=== PATIENT | female | born 1990 | race Hispanic/Latino ===

== ENCOUNTER 2021-09-14 20:25 | Emergency (ER) | payer OTHER ==
[~2021-09-14] VITALS: Ht 167.6 cm; Wt 93.9 kg
[2021-09-14] MEDS ORDERED: IBUPROFEN 800 MG TAB PO ONE (21:00)
[2021-09-14 21:44] LABS: RAPID PLASMA REAGIN NONREACTIVE (NONREACTIVE)
[2021-09-14] MEDS ORDERED: IBUP-2071 PO (22:01)
[2021-09-14 22:03] VITALS: BP 115/71
[2021-09-15 14:36] LABS: HEPATITIS B SURFACE ANTIGEN Non-Reactive (Nonreactive); HEPATITIS C ANTIBODY Non-Reactive (Nonreactive)
[2021-09-15 14:37] LABS: HEPATITIS A IGM ANTIBODY Non-Reactive (Nonreactive); HEPATITIS B CORE IGM ANTIBODY Non-Reactive (Negative)
== END 2021-09-14 22:09 | disposition home or self-care (01) ==
LOC: EDH 20:25
DX: S00.83XA Contusion of other part of head, initial encounter (principal); Z77.21 Contact with and (suspected) exposure to potentially hazardous body fluids; Z79.1 Long term (current) use of non-steroidal anti-inflammatories (NSAID); X58.XXXA Exposure to other specified factors, initial encounter; Y93.89 Activity, other specified; Y92.89 Other specified places as the place of occurrence of the external cause; Y99.8 Other external cause status
CPT/HCPCS: 36415; 70486; 80074; 86592; 86701; 87390

== ENCOUNTER 2023-03-07 03:48 | Emergency (ER) | payer OTHER ==
[~2023-03-07] VITALS: Ht 167.6 cm; Wt 93.0 kg
[~2023-03-07 03:48] MED LIST: IBUP-2071 PO
[2023-03-07 03:49] VITALS: BP 144/88; PULSE 87; RESP 18
[2023-03-07 04:19] LABS: BASOPHILS # (AUTO) 0.08 K/uL (0.00-0.20); BASOPHILS % (AUTO) 0.8 % (0.0-5.0); EOSINOPHILS # (AUTO) 0.42 K/uL (0.00-0.70); EOSINOPHILS % (AUTO) 4.3 % (0.0-8.0); HEMATOCRIT 35.4 % (36-48); IMMATURE GRANULOCYTE ABSOLUTE 0.02 K/uL (0-1); LYMPHOCYTES # (AUTO) 2.8 K/uL (1.0-4.8); LYMPHOCYTES % (AUTO) 28.7 % (21.0-51.0); MEAN CORPUSCULAR HEMOGLOBIN 26.2 pg (27.0-33.0); MEAN CORPUSCULAR HGB CONC 32.8 g/dL (32.0-36.0); MEAN CORPUSCULAR VOLUME 79.9 fL (79-99); MONOCYTES # (AUTO) 0.9 K/uL (0.1-1.0); MONOCYTES % (AUTO) 9.3 % (3.0-13.0); NEUTROPHILS # (AUTO) 5.5 K/uL (1.8-7.7); NEUTROPHILS % (AUTO) 56.7 % (40.0-77.0); PLATELET COUNT (AUTO) 264 K/uL (130-400); RED BLOOD CELL COUNT(AUTO) 4.43 MIL/uL (4.00-5.50); RED CELL DISTRIBUTION WIDTH 15.3 % (11.0-15.5); WHITE BLOOD COUNT (AUTO) 9.8 K/uL (4.8-10.8)
[2023-03-07 04:49] LABS: BILIRUBIN,TOTAL 0.4 mg/dL (0.2-1.0); CREATININE 0.7 mg/dL (0.5-1.5); POTASSIUM 3.5 mmol/L (3.5-5.1); TOTAL PROTEIN, SERUM 8.2 g/dL (6.0-8.3)
[2023-03-07] MEDS ORDERED: PRED20TA3 PO (05:57)
[2023-03-07] MEDS ORDERED: ALBU90AE2 IH (05:57)
== END 2023-03-07 06:03 | disposition home or self-care (01) ==
LOC: EDH 03:48
DX: T59.811A Toxic effect of smoke, accidental (unintentional), initial encounter (principal); J45.909 Unspecified asthma, uncomplicated
CPT/HCPCS: 36415; 71045; 80053; 81025; 85025